=== PATIENT | female | born 1975 | race Hispanic/Latino ===

== ENCOUNTER → 2024-05-02 | Outpatient (REF) | payer OTHER ==
[~2024-05-02] MED LIST: PHENTERMINE H37.5 MG; XARELTO20 MG PO
== END ==
LOC: DX 08:54
PROVIDERS: ATTEND Nurse Practitioner
DX: D50.8 Other iron deficiency anemias (principal)
CPT/HCPCS: 74250; 81025

== ENCOUNTER 2024-07-21 15:05 | Emergency (ER) | payer OTHER ==
[~2024-07-21] VITALS: Ht 157.5 cm; Wt 77.3 kg
[2024-07-21] MEDS: ONDANSETRON HCL INJ 2MG/ML 2ML 2 MG/ML VIAL IV STA (16:10)
[2024-07-21] MEDS: LORAZEPAM INJ 2 MG/ML VIAL IV ONE (16:11)
[2024-07-21] MEDS: Morphine 2mg Syringe 2 MG/ML SYR IV ONE (16:11)
[2024-07-21] MEDS ORDERED: IOPAMIDOL 370 MG/ML 100 ML INFUS..BTL INJ ONE (16:35)
[2024-07-21 17:54] VITALS: PULSE 79; RESP 18; TEMP 97.8; O2SAT 100
[2024-07-21] MEDS ORDERED: MACROBID 100 M100 MG PO (18:06)
== END 2024-07-21 18:10 | disposition home or self-care (01) ==
LOC: FSED 15:09
DX: R06.02 Shortness of breath (principal); R07.89 Other chest pain; N39.0 Urinary tract infection, site not specified; F41.0 Panic disorder [episodic paroxysmal anxiety]
CPT/HCPCS: 71046; 71260; 80053; 81003; 81025; 83880; 84484; 85025; 85379; 93005; 96374; 96375; 99284; J2060; J2270; J2405; Q9967

== ENCOUNTER 2024-12-03 20:20 | Emergency (ER) | payer OTHER ==
[~2024-12-03] VITALS: Ht 157.5 cm; Wt 73.5 kg
[~2024-12-03 20:20] MED LIST changes: +MACROBID 100 M100 MG PO
[2024-12-03 21:08] VITALS: PULSE 65; RESP 18; TEMP 98.3
[2024-12-03] MEDS: ALBUTEROL/IPRATROPIUM 3 ML NEB NEB ONE (21:57)
[2024-12-03] MEDS ORDERED: VENTOLIN HFA18 GM INH (22:41)
[2024-12-03] MEDS: AZITHROMYCIN 250 MG TAB PO STA (22:42)
[2024-12-03] MEDS ORDERED: ZITHROMAX500 MG PO (22:42)
[2024-12-03 23:08] VITALS: BP 129/75; PULSE 62; RESP 16; TEMP 98.5; O2SAT 99
== END 2024-12-03 23:08 | disposition home or self-care (01) ==
LOC: FSED 21:26
DX: R05.9 Cough, unspecified (principal); J02.0 Streptococcal pharyngitis; J40 Bronchitis, not specified as acute or chronic; F41.9 Anxiety disorder, unspecified; I99.8 Other disorder of circulatory system; Z11.52 Encounter for screening for COVID-19; Z86.718 Personal history of other venous thrombosis and embolism
CPT/HCPCS: 0223U; 71046; 83518; 87400; 99282